=== PATIENT | male | born 1975 ===

== ENCOUNTER 2019-12-11 02:25 | Inpatient (IN) ==
[2019-12-11] MEDS ORDERED: SODIUM CHLORIDE 0.9% 500 ML IV STA (02:56)
[2019-12-11] MEDS ORDERED: ONDANSETRON 4 MG/2 ML VIAL IV STA (02:56)
[2019-12-11] MEDS ORDERED: PANTOPRAZOLE 40 MG VIAL IV STA (02:56)
[2019-12-11 03:02] LABS: Basophils % 0.2 % (0.0-0.8); Eosinophils % 0.2 % (0.00-10.9); Hematocrit 25.4 VOL% (42.0-52.0); Hemoglobin 7.9 GM/DL (14.0-18.0); Immature Granulocytes % 1.3 %; Immature Granulocytes Absolute 0.12 #; Lymphocytes % 10.9 % (21.2-54.2); Mean Corpuscular HGB Conc 31.1 GM/DL (32-36); Mean Corpuscular Volume 86.7 FL (87-102); Mean Platelet Volume 10.2 FL (9.6-12.0); Monocytes % 7.7 % (1.7-12.7); NRBC # 0.02 10*3/uL; Neutrophils % 79.7 % (38.7-73.9); Platelet Count 264 T/CUMM (130-400); Red Blood Count 2.93 MC/CUMM (3.8-5.5); Red Cell Distribution Width 14.7 % (9.3-17.3); White Blood Count 9.4 T/CUMM (4-12)
[2019-12-11 03:09] LABS: INR 1.3; PT Patient Result 13.5 SECS (9.8-11.9)
[2019-12-11 03:15] LABS: Albumin 1.4 G/DL (3.4-5.0); Bilirubin,Total 0.8 MG/DL (0.2-1.0); Calcium 10.6 MG/DL (8.5-10.1); Osmolality,Calculated 275.1 MOS/KG (273-304); Total Protein 7.5 G/DL (6.4-8.3)
[2019-12-11] MEDS ORDERED: GLUCAGON 1 MG VIAL IM PRN (03:38)
[2019-12-11] MEDS ORDERED: DEXTROSE 50% 25 GM/50 ML VIAL IV PRN (03:38)
[2019-12-11] MEDS ORDERED: ONDANSETRON 4 MG/2 ML VIAL IV PRN (03:38)
[2019-12-11] MEDS ORDERED: SODIUM CHLORIDE 0.9% 1,000 ML IV PRN (03:46)
[2019-12-11 08:08] LABS: Hematocrit 25.3 VOL% (42.0-52.0); Hemoglobin 7.8 GM/DL (14.0-18.0)
[2019-12-11 08:41] LABS: Albumin 1.4 G/DL (3.4-5.0); Bilirubin,Total 1.6 MG/DL (0.2-1.0); Calcium 10.5 MG/DL (8.5-10.1); Total Protein 7.2 G/DL (6.4-8.3)
[2019-12-11] MEDS: PANTOPRAZOLE 40 MG TABLET PO SCH ×2 (08:50→20:36)
[2019-12-11] MEDS ORDERED: PANTOPRAZOLE 40 MG TABLET PO SCH (09:00)
[2019-12-11] MEDS: INSULIN REGULAR 100 UNIT/ML SUBCUT SCH ×4 (09:13→20:37)
[2019-12-11 12:56] LABS: Hepatitis B Core IgM Quant 0.24 Index; Hepatitis B Surface Ag Quant < 0.10 Index; Hepatitis B Surface Ag Result Negative (Negative); Hepatitis C Virus Ab Quant 0.13 Index; Hepatitis C Virus Ab Result Negative (Negative)
[2019-12-11 13:01] LABS: Hematocrit 25.1 VOL% (42.0-52.0); Hemoglobin 7.7 GM/DL (14.0-18.0)
[2019-12-11] MEDS ORDERED: ACETAMINOPHEN 325 MG TABLET PO PRN (16:29)
[2019-12-11 18:58] LABS: Hematocrit 24.3 VOL% (42.0-52.0); Hemoglobin 7.5 GM/DL (14.0-18.0)
[2019-12-12 06:44] LABS: Basophils % 0.1 % (0.0-0.8); Eosinophils # 0.1 10*3/uL (0.0-0.87); Eosinophils % 0.9 % (0.00-10.9); Hematocrit 24.7 VOL% (42.0-52.0); Hemoglobin 7.6 GM/DL (14.0-18.0); Immature Granulocytes % 1.2 %; Immature Granulocytes Absolute 0.11 #; Lymphocytes # 1.2 10*3/uL (1.4-4.0); Lymphocytes % 13.3 % (21.2-54.2); Mean Corpuscular HGB Conc 30.8 GM/DL (32-36); Mean Corpuscular Volume 87.6 FL (87-102); Mean Platelet Volume 9.9 FL (9.6-12.0); Monocytes % 10.2 % (1.7-12.7); Neutrophils % 74.3 % (38.7-73.9); Platelet Count 260 T/CUMM (130-400); Red Blood Count 2.82 MC/CUMM (3.8-5.5); Red Cell Distribution Width 15.1 % (9.3-17.3); White Blood Count 8.9 T/CUMM (4-12)
[2019-12-12 07:13] LABS: Albumin 1.2 G/DL (3.4-5.0); Calcium 11.2 MG/DL (8.5-10.1); Osmolality,Calculated 273.8 MOS/KG (273-304); Total Protein 6.8 G/DL (6.4-8.3)
[2019-12-12] MEDS ORDERED: LACTATED RINGERS 1,000 ML IV SCH (08:00)
[2019-12-12] MEDS ORDERED: propofoL 200 MG/20 ML VIAL IV ONE (09:00)
[2019-12-12] MEDS ORDERED: LIDOCAINE 2% 5 ML VIAL ONE (09:00)
[2019-12-12] MEDS: PANTOPRAZOLE 40 MG TABLET PO SCH (09:44)
[2019-12-12] MEDS: INSULIN REGULAR 100 UNIT/ML SUBCUT SCH (10:19)
[2019-12-12 12:43] VITALS: BP 115/73
[2019-12-12] MEDS ORDERED: FLUCONAZOLE INJ 100 MG in IV BAG 1 EACH IV SCH (13:00)
== END 2019-12-12 14:47 | disposition home or self-care (01) | DRG 378 ==
LOC: EDUNIT# → EDBD → N.EDINP 02:25 → N.ED 02:25 → N.EDINP 06:43 → N.4E 06:59
PROVIDERS: ADMIT Internal Medicine; ATTEND Internal Medicine